=== PATIENT | female | born 1945 | race Caucasian/White ===

== ENCOUNTER 2017-09-13 21:10 | Observation (INO) | payer OTHER ==
[~2017-09-13 21:10] MED LIST: CART180C3 PO; CHOL1CAP2 PO; ESTR1 PO; NORC5TAB PO; OXYB5TAB PO; SOTA120T PO; SYNT25TA PO; TRAM50TA PO; WARF-21 PO; WARF-23 PO
[2017-09-13] MEDS ORDERED: SODIUM CHLORIDE 0.9% FLUSH 10 ML FLUSH IVF PRN (21:15)
[2017-09-13 21:25] VITALS: BP 136/92; PULSE 73; RESP 20; O2SAT 96
[2017-09-13 21:35] LABS: AUTOMATED NEUTROPHIL # 3.5 TH/MM3 (1.8-7.7); BASOPHIL % 0.7 % (0.0-2.0); EOSINOPHIL # 0.2 TH/MM3 (0-0.4); EOSINOPHIL % 2.4 % (0.0-4.0); HEMATOCRIT 46.5 % (35.0-46.0); LYMPH % 31.1 % (9.0-44.0); MEAN CELL VOLUME 89.1 FL (80.0-100.0); MEAN CORPUSCULAR HEMOGLOBIN 30.7 PG (27.0-34.0); MEAN CORPUSCULAR HGB CONC 34.5 % (32.0-36.0); MEAN PLATELET VOLUME 8.9 FL (7.0-11.0); MONOCYTE # 0.6 TH/MM3 (0-0.9); NEUT % 55.8 % (16.0-70.0); PLATELET COUNT 212 TH/MM3 (150-450); RED BLOOD COUNT 5.22 MIL/MM3 (4.00-5.30); RED CELL DISTRIBUTION WIDTH 13.9 % (11.6-17.2); WHITE BLOOD COUNT 6.3 TH/MM3 (4.0-11.0)
--- NOTE | 2017-09-13 21:38 | PD ---
HPI Chief Complaint: Chest Pain Time Seen by Provider: 21:15 Travel History International Travel<30 days: No Contact w/Intl Traveler<30days: No Traveled to known affect area: No History of Present Illness HPI Patient is a 72-year-old female who presents emergency department for evaluation of chest pain. Patient was actually escorting her elderly friend here for evaluation when she began having chest tightness in the center of her chest, she states it feels like someone squeezing her, she has never had pain like this before. She denies any shortness of breath palpitations nausea vomiting. She does have a history of atrial fibrillation and is on Coumadin followed by Dr. Robbins. Her friend who is also a patient of mine was sitting next to her when the patient began clutching her chest saying "I think I am having a heart attack". Patient states she was feeling just fine when she got here, states symptoms only lasted for a few minutes but at my suggestion she decided to sign in and be seen. Symptoms moderate, center of the chest, associated signs and symptoms and context as above. PFSH Past Medical History Arthritis: No Asthma: No Atrial Fibrillation: Yes Autoimmune Disease: No Blood Disorders: No Anxiety: Yes Depression: No Heart Rhythm Problems: Yes Cancer: Yes (LYMPHOMA) Cardiovascular Problems: No High Cholesterol: Yes Chemotherapy: Yes Chest Pain: Yes Congestive Heart Failure: No COPD: No Cerebrovascular Accident: Yes (TIA) Diabetes: No Diminished Hearing: No GERD: No Glaucoma: No Headaches: No Hepatitis: No Hiatal Hernia: No Hypertension: No Kidney Stones: No Musculoskeletal: Yes (SPINAL STENOSIS) Neurologic: No Psychiatric: No Reproductive: No Respiratory: No Myocardial Infarction: No Radiation Therapy: No Renal Failure: No Seizures: No Sickle Cell Disease: No Sleep Apnea: No Thyroid Disease: No Ulcer: No Past Surgical History Abdominal Surgery: Yes (COLON RESECTION WITH REVERSED ILEOSTOMY) AICD: No Genitourinary Surgery: Yes Gynecologic Surgery: Yes Hysterectomy: Yes Pacemaker: No Other Surgery: Yes (PARTIAL LIVER REMOVED) Social History Alcohol Use: No Tobacco Use: No Substance Use: No Allergies-Medications (Allergen,Severity, Reaction): Coded Allergies: codeine (Verified Allergy, Severe, Nausea/Vomiting, 09/13/17) meperidine (Verified Allergy, Severe, Nausea/Vomiting, 09/13/17) morphine (Verified Allergy, Severe, Nausea/Vomiting, 09/13/17) diphenhydramine (Verified Allergy, Mild, 09/13/17) Reported Meds & Prescriptions Reported Meds & Active Scripts Active Reported Tramadol (Tramadol HCl) 50 Mg Tab 50 Mg PO PRN PRN Cartia Xt (Diltiazem HCl) 180 Mg Cap.er.24h 1 Cap PO DAILY Warfarin 7.5 Mg Tab 1 Tab PO DAILY PRN Warfarin 5 Mg Tab 1 Tab PO DAILY PRN Tramadol (Tramadol HCl) 50 Mg Tab 1 Tab PO PRN PRN Synthroid (Levothyroxine Sodium) 25 Mcg Tab 1 Tab PO HS Sotalol (Sotalol HCl) 120 Mg Tab 1 Tab PO DAILY Oxybutynin ER 24 HR (Oxybutynin Chloride) 5 Mg Tab 1 Tab PO DAILY Hazen (Hydrocodone-Acetaminophen) 5-325 mg Tab 1 Tab PO Q6H PRN Estrace (Estradiol) 1 Mg Tab 1 Tab PO DAILY Fenofibric Acid Dr (Choline Fenofibrate DR) 135 mg Capdr 1 Cap PO DAILY Review of Systems Except as stated in HPI: all other systems reviewed are Neg Physical Exam Narrative GENERAL: Well-developed well-nourished clutching chest., morbidly obese. SKIN: Focused skin assessment warm/dry. HEAD: Atraumatic. Normocephalic. EYES: Pupils equal and round. No scleral icterus. No injection or drainage. ENT: No nasal bleeding or discharge. Mucous membranes pink and moist. NECK: Trachea midline. No JVD. CARDIOVASCULAR: Regular rate and rhythm. No murmur appreciated. 2+ bilateral equal pulses in all 4 extremities per RESPIRATORY: No accessory muscle use. Clear to auscultation. Breath sounds equal bilaterally. GASTROINTESTINAL: Abdomen soft, non-tender, nondistended. Hepatic and splenic margins not palpable. MUSCULOSKELETAL: No obvious deformities. No clubbing. No cyanosis. No edema. NEUROLOGICAL: Awake and alert. No obvious cranial nerve deficits. Motor grossly within normal limits. Normal speech. PSYCHIATRIC: Appropriate mood and affect; insight and judgment normal. Data Data Last Documented VS Vital Signs Date Time Temp Pulse Resp B/P (MAP) Pulse Ox O2 Delivery O2 Flow Rate FiO2 09/13/17 22:41 71 18 144/71 (95) 99 Nasal Cannula 3.00 Orders Orders Electrocardiogram (09/13/17 21:15) Ckmb (Isoenzyme) Profile (09/13/17 21:15) Complete Blood Count With Diff (09/13/17 21:15) Comprehensive Metabolic Panel (09/13/17 21:15) Magnesium (Mg) (09/13/17 21:15) Prothrombin Time / Inr (Pt) (09/13/17 21:15) Act Partial Throm Time (Ptt) (09/13/17 21:15) Troponin I (09/13/17 21:15) Chest, Single Ap (09/13/17 21:15) Ecg Monitoring (09/13/17 21:15) Iv Access Insert/Monitor (09/13/17 21:15) Oximetry (09/13/17 21:15) Oxygen Administration (09/13/17 21:15) Sodium Chloride 0.9% Flush (Ns Flush) (09/13/17 21:15) Aspirin Chew (Aspirin Chew) (09/13/17 22:00) Troponin I (09/13/17 23:59) Labs Laboratory Tests Test 09/13/17 21:19 09/13/17 23:35 White Blood Count 6.3 TH/MM3 Red Blood Count 5.22 MIL/MM3 Hemoglobin 16.0 GM/DL Hematocrit 46.5 % Mean Corpuscular Volume 89.1 FL Mean Corpuscular Hemoglobin 30.7 PG Mean Corpuscular Hemoglobin Concent 34.5 % Red Cell Distribution Width 13.9 % Platelet Count 212 TH/MM3 Mean Platelet Volume 8.9 FL Neutrophils (%) (Auto) 55.8 % Lymphocytes (%) (Auto) 31.1 % Monocytes (%) (Auto) 10.0 % Eosinophils (%) (Auto) 2.4 % Basophils (%) (Auto) 0.7 % Neutrophils # (Auto) 3.5 TH/MM3 Lymphocytes # (Auto) 2.0 TH/MM3 Monocytes # (Auto) 0.6 TH/MM3 Eosinophils # (Auto) 0.2 TH/MM3 Basophils # (Auto) 0.0 TH/MM3 CBC Comment DIFF FINAL Differential Comment Prothrombin Time 23.6 SEC Prothromb Time International Ratio 2.3 RATIO Activated Partial Thromboplast Time 39.2 SEC Blood Urea Nitrogen 19 MG/DL Creatinine 0.85 MG/DL Random Glucose 79 MG/DL Total Protein 7.6 GM/DL Albumin 3.7 GM/DL Calcium Level 9.6 MG/DL Magnesium Level 2.2 MG/DL Alkaline Phosphatase 70 U/L Aspartate Amino Transf (AST/SGOT) 21 U/L Alanine Aminotransferase (ALT/SGPT) 20 U/L Total Bilirubin 0.5 MG/DL Sodium Level 140 MEQ/L Potassium Level 3.7 MEQ/L Chloride Level 106 MEQ/L Carbon Dioxide Level 27.3 MEQ/L Anion Gap 7 MEQ/L Estimat Glomerular Filtration Rate 66 ML/MIN Total Creatine Kinase 69 U/L Troponin I LESS THAN 0.02 NG/ML MDM Medical Decision Making Medical Screen Exam Complete: Yes Emergency Medical Condition: Yes Differential Diagnosis ACS, GA, esophageal spasm, reflux, GERD, pneumonia, chest wall pain. Narrative Course Patient room to the emergency department, initial EKG shows atrial fibrillation without any ischemic changes, troponin negative. Initial troponin was drawn less than 30 minutes after the onset of her pain and I recommended that she have a repeat troponin admission to the hospital for consideration of stress testing. Patient really wants to take care of her friend and get her home as she is being discharged. I discussed with the patient that she is at risk of major adverse cardiac event in the next 30 days and suggested that she needs to be admitted to the hospital for chest pain testing. She is quite opposed to this even after she verbalized understanding to the risks of signing out AMA that I discussed with her including and permanent disability. She verbalized understanding to these risks and was willing to accept them. On further discussion she did agree to have a repeat troponin and she is due to have one drawn at midnight. On my reassessment at 11:00 the patient is now pain -free after an aspirin alone. Patient was discussed with Dr. Deluca to follow- up this repeat troponin. Diagnosis Primary Impression: Chest pain Tomi Rivers MD Sep 13, 2017 21:38
[2017-09-13 21:47] LABS: CHLORIDE 106 MEQ/L (98-107); SODIUM (NA) 140 MEQ/L (136-145)
[2017-09-13 21:51] LABS: ALBUMIN 3.7 GM/DL (3.4-5.0); BICARBONATE 27.3 MEQ/L (21.0-32.0); BLOOD UREA NITROGEN 19 MG/DL (7-18); CALCIUM 9.6 MG/DL (8.5-10.1); GLUCOSE,RANDOM 79 MG/DL (74-106); MAGNESIUM 2.2 MG/DL (1.5-2.5)
[2017-09-13 21:53] LABS: INTERNATIONAL NORMALIZED RATIO 2.3 RATIO; PROTHROMBIN TIME - PATIENT 23.6 SEC (9.8-11.6)
[2017-09-13 21:54] LABS: ALT (GPT) 20 U/L (10-53); AST (GOT) 21 U/L (15-37); CREATININE 0.85 MG/DL (0.50-1.00); GLOMERULAR FILTRATION RATE 66 ML/MIN (>89)
[2017-09-13 21:56] LABS: TOTAL BILIRUBIN ADULT 0.5 MG/DL (0.2-1.0); TOTAL PROTEIN 7.6 GM/DL (6.4-8.2)
[2017-09-13 21:57] LABS: ALKALINE PHOSPHATASE 70 U/L (45-117)
[2017-09-13 21:59] LABS: TROPONIN I LESS THAN 0.02 NG/ML (0.02-0.05)
[2017-09-13] MEDS ORDERED: ASPIRIN 81 MG CHEW TAB CHEW ONE (22:00)
--- NOTE | 2017-09-13 22:05 | RADRPT ---
EXAM DATE/TIME: 09/13/2017 21:25 [facility] COMPARISON: No previous studies available for comparison. INDICATIONS : Chest pain. MEDICAL HISTORY : Hodgkins lymphoma. Afib SURGICAL HISTORY : Splenectomy. Hysterectomy. Hysterectomy. Colon resection. ENCOUNTER: Initial ACUITY: 1 day PAIN SCORE: 3/10 LOCATION: Bilateral chest FINDINGS: A single view of the chest demonstrates the lungs to be symmetrically aerated without evidence of mas s, infiltrate or effusion. The cardiomediastinal contours are unremarkable. Osseous structures are intact. CONCLUSION: No acute disease. Francisco Torres MD on September 13, 2017 at 22:03 Board Certified Radiologist. This report was verified electronically.
[2017-09-13 22:41] VITALS: BP 144/71; PULSE 71; RESP 18; O2SAT 99
--- NOTE | 2017-09-14 00:54 | PD ---
Physical Exam Date Seen by Provider: Sep 14, 2017 Time Seen by Provider: 00:[address] Rivers in transfer of care Data Data Last Documented VS Vital Signs Date Time Temp Pulse Resp B/P (MAP) Pulse Ox O2 Delivery O2 Flow Rate FiO2 09/13/17 22:41 71 18 144/71 (95) 99 Nasal Cannula 3.00 Orders Orders Electrocardiogram (09/13/17 21:15) Ckmb (Isoenzyme) Profile (09/13/17 21:15) Complete Blood Count With Diff (09/13/17 21:15) Comprehensive Metabolic Panel (09/13/17 21:15) Magnesium (Mg) (09/13/17 21:15) Prothrombin Time / Inr (Pt) (09/13/17 21:15) Act Partial Throm Time (Ptt) (09/13/17 21:15) Troponin I (09/13/17 21:15) Chest, Single Ap (09/13/17 21:15) Ecg Monitoring (09/13/17 21:15) Iv Access Insert/Monitor (09/13/17 21:15) Oximetry (09/13/17 21:15) Oxygen Administration (09/13/17 21:15) Sodium Chloride 0.9% Flush (Ns Flush) (09/13/17 21:15) Aspirin Chew (Aspirin Chew) (09/13/17 22:00) Troponin I (09/13/17 23:59) Admit Order (Ed Use Only) (09/14/17 ) Youth Support Worker / Telemetry [id number] (09/14/17 00:33) Diet Heart Healthy (09/14/17 Breakfast) Activity Oob With Assistance (09/14/17 00:33) Notify Dr: Other (09/14/17 00:33) Labs Laboratory Tests Test 09/13/17 21:19 09/13/17 23:35 White Blood Count 6.3 TH/MM3 Red Blood Count 5.22 MIL/MM3 Hemoglobin 16.0 GM/DL Hematocrit 46.5 % Mean Corpuscular Volume 89.1 FL Mean Corpuscular Hemoglobin 30.7 PG Mean Corpuscular Hemoglobin Concent 34.5 % Red Cell Distribution Width 13.9 % Platelet Count 212 TH/MM3 Mean Platelet Volume 8.9 FL Neutrophils (%) (Auto) 55.8 % Lymphocytes (%) (Auto) 31.1 % Monocytes (%) (Auto) 10.0 % Eosinophils (%) (Auto) 2.4 % Basophils (%) (Auto) 0.7 % Neutrophils # (Auto) 3.5 TH/MM3 Lymphocytes # (Auto) 2.0 TH/MM3 Monocytes # (Auto) 0.6 TH/MM3 Eosinophils # (Auto) 0.2 TH/MM3 Basophils # (Auto) 0.0 TH/MM3 CBC Comment DIFF FINAL Differential Comment Prothrombin Time 23.6 SEC Prothromb Time International Ratio 2.3 RATIO Activated Partial Thromboplast Time 39.2 SEC Blood Urea Nitrogen 19 MG/DL Creatinine 0.85 MG/DL Random Glucose 79 MG/DL Total Protein 7.6 GM/DL Albumin 3.7 GM/DL Calcium Level 9.6 MG/DL Magnesium Level 2.2 MG/DL Alkaline Phosphatase 70 U/L Aspartate Amino Transf (AST/SGOT) 21 U/L Alanine Aminotransferase (ALT/SGPT) 20 U/L Total Bilirubin 0.5 MG/DL Sodium Level 140 MEQ/L Potassium Level 3.7 MEQ/L Chloride Level 106 MEQ/L Carbon Dioxide Level 27.3 MEQ/L Anion Gap 7 MEQ/L Estimat Glomerular Filtration Rate 66 ML/MIN Total Creatine Kinase 69 U/L Troponin I LESS THAN 0.02 NG/ML LESS THAN 0.02 NG/ML [facility] Medical Record Reviewed: Yes Supervised Visit with CARLA: No Differential Diagnosis accepted in transfer of care from Dr Rivers please refer to his dictation Narrative Course Accepted in transfer of care from Dr. Rivers for follow-up of second troponin I per Dr. Rivers patient presents with history of atrial fibrillation and complained of chest pain reporting that she thought she was having a heart attack patient was not having pain at the time that he saw her and gave her aspirin. Patient is therapeutic on her INR which she takes for atrial fibrillation. Patient has no chest pain at this time. Second troponin I is pending Second troponin I has been resulted and identifies to be less than 0.02 EKG is atrial fibrillation with controlled ventricular rate of [address] elevation injury pattern subsequently patient has agreed to stay for chest pain center protocol Call placed [facility] for obs BUSINESS CONTINUITY ANALYST protocol Physician Communication Physician Communication discussed with Dr Rivers Diagnosis Primary Impression: Chest pain Admitting Information Admitting Physician Requests: Observation Ghazala Deluca MD Sep 14, 2017 00:54
[2017-09-14] MEDS ORDERED: NITROGLYCERIN 0.4 MG SL 25 TABS/BTL SL PRN (01:00)
[2017-09-14] MEDS ORDERED: ASPIRIN 81 MG CHEW TAB PO ONE (01:00)
[2017-09-14] MEDS ORDERED: SODIUM CHLORIDE 0.9% FLUSH 10 ML FLUSH IV FLUSH PRN (01:00)
[2017-09-14 01:07] VITALS: BP 132/76
[2017-09-14 01:10] VITALS: PULSE 71
[2017-09-14 01:30] VITALS: BP 149/87; PULSE 67; RESP 20; TEMP 97; O2SAT 94; O2SAT 97
[2017-09-14 03:18] LABS: TROPONIN I LESS THAN 0.02 NG/ML (0.02-0.05)
[2017-09-14 04:00] VITALS: BP 106/52; PULSE 81; RESP 20; TEMP 96.5; O2SAT 97
[2017-09-14 08:00] VITALS: BP 127/75; PULSE 56; RESP 16; TEMP 97.2; O2SAT 97
--- NOTE | 2017-09-14 08:26 | HHI.HP ---
[facility] Jass Casarez M.D. Admission Diagnosis Chest pain Diagnoses: (1) Chest pain Chief Complaint: Chest pain Travel History International Travel<30 Days: No Contact w/Intl Traveler <30 Da: No Traveled to Known Affected Are: No History of Present Illness Written by Lea Bravo, acting as scribe for Dr. Zepeda on 09/14/17 at 08:14. This is a 72-year-old female patient with a known medical history of atrial fibrillation on Coumadin, hyperlipidemia, history of lymphoma, history of TIA who presented to the ED with complaints of chest pain. Patient supposedly was bringing in a friend to the hospital and while in the ER with her she developed a chest pain in her midsternal chest. Patient states that the pain occurred suddenly, was characterized as sharp in nature, denies any radiation of pain to the arms, legs or jaw, denies any associated nausea, vomiting, lightheadedness, shortness of breath. Patient states she has not had an episode of this pain before roughly 6 months ago. She does follow with Dr. Robbins in his office for management of atrial fibrillation. States his last stress test was many years ago and reportedly negative. She denies any recent illness including fever, chills, cough, abdominal pain, nausea, vomiting, diarrhea or dysuria. Denies any history of GERD. At the time of assessment patient's chest pain is resolved. Troponins are flat. EKG showing controlled rate atrial fibrillation. Review of Systems Constitutional: DENIES: Fever, Chills Eyes: DENIES: Blurred vision, Diplopia Respiratory: DENIES: Cough, Sputum production, Shortness of breath Cardiovascular: COMPLAINS OF: Chest pain, Palpitations, DENIES: Lower Extremity Edema Gastrointestinal: DENIES: Abdominal pain, Black stools, Bloody stools, Constipation, Diarrhea, Nausea, Vomiting Musculoskeletal: DENIES: Joint pain Psychiatric: COMPLAINS OF: Anxiety Except as stated in HPI: all other systems reviewed are Neg Past Family Social History Past Medical History Atrial fibrillation on Coumadin Anxiety and depression History of lymphoma with chemotherapy Hyperlipidemia History of TIA Spinal stenosis Past Surgical History History of colon resection with reversed ileostomy Hysterectomy Partial part of liver removed. Reported Medications Active Reported Cartia Xt (Diltiazem HCl) 180 Mg Cap.er.24h 1 Cap PO DAILY Warfarin 7.5 Mg Tab 1 Tab PO DAILY PRN Warfarin 5 Mg Tab 1 Tab PO DAILY PRN Tramadol (Tramadol HCl) 50 Mg Tab 1 Tab PO PRN PRN Synthroid (Levothyroxine Sodium) 25 Mcg Tab 1 Tab PO HS Sotalol (Sotalol HCl) 120 Mg Tab 1 Tab PO DAILY Oxybutynin ER 24 HR (Oxybutynin Chloride) 5 Mg Tab 1 Tab PO DAILY Estrace (Estradiol) 1 Mg Tab 1 Tab PO DAILY Fenofibric Acid Dr (Choline Fenofibrate DR) 135 mg Capdr 1 Cap PO DAILY Allergies: Coded Allergies: codeine (Verified Allergy, Severe, Nausea/Vomiting, 09/13/17) meperidine (Verified Allergy, Severe, Nausea/Vomiting, 09/13/17) morphine (Verified Allergy, Severe, Nausea/Vomiting, 09/13/17) diphenhydramine (Verified Allergy, Mild, 09/13/17) Active Ordered Medications Current Medications Medications (Trade) Dose Ordered Sig/Mak Route Start Time Stop Time Status Last Admin (NS Flush) 2 ml UNSCH PRN IVF 09/13/17 21:15 (NS Flush) 2 ml UNSCH PRN IV FLUSH 09/14/17 01:00 (NS Flush) 2 ml BID IV FLUSH 09/14/17 09:00 09/14/17 08:06 (Nitrostat Sl) 0.4 mg Q5M PRN SL 09/14/17 01:00 Family History Maternal medical history significant for hypertension. Social History Denies any current tobacco use, states she quit smoking years ago. Denies any alcohol or illicit drug use. Physical Exam Vital Signs Vital Signs Date Time Temp Pulse Resp B/P (MAP) Pulse Ox O2 Delivery O2 Flow Rate FiO2 09/14/17 04:00 96.5 81 20 106/52 (70) 97 09/14/17 01:30 97 21 09/14/17 01:30 97.0 67 20 149/87 (107) 94 09/14/17 01:10 71 09/14/17 01:07 69 18 132/76 (94) 99 Nasal Cannula 2.00 09/13/17 22:41 71 18 144/71 (95) 99 Nasal Cannula 3.00 09/13/17 21:27 Nasal Cannula 2.00 09/13/17 21:27 Nasal Cannula 09/13/17 21:25 73 20 136/92 (107) 96 Physical Exam GENERAL: Well-developed, obese female patient in NAD. SKIN: Warm and dry. No rash. HEAD: Normocephalic. Atraumatic. EYES: Pupils equal and round. No scleral icterus. No injection or drainage. ENT: No nasal bleeding or discharge. Mucous membranes pink and moist. NECK: Supple. Trachea midline. CARDIOVASCULAR: Irregularly irregular rhythm. No murmur appreciated. RESPIRATORY: No accessory muscle use. Clear to auscultation. Breath sounds equal bilaterally. GASTROINTESTINAL: Abdomen soft, non-tender, nondistended. Normoactive bowel sounds x4. Mid abdominal scar from prior surgery. MUSCULOSKELETAL: No obvious deformities. Extremities without clubbing, cyanosis , or edema. NEUROLOGICAL: Awake and alert. No obvious cranial nerve deficits. Motor grossly within normal limits. 5/5 muscle strength in bilateral upper and lower extremities. Normal speech. PSYCHIATRIC: Appropriate mood and affect; insight and judgment normal. Laboratory Laboratory Tests Test 09/13/17 21:19 09/13/17 23:35 09/14/17 02:35 White Blood Count 6.3 Red Blood Count 5.22 Hemoglobin 16.0 Hematocrit 46.5 Mean Corpuscular Volume 89.1 Mean Corpuscular Hemoglobin 30.7 Mean Corpuscular Hemoglobin Concent 34.5 Red Cell Distribution Width 13.9 Platelet Count 212 Mean Platelet Volume 8.9 Neutrophils (%) (Auto) 55.8 Lymphocytes (%) (Auto) 31.1 Monocytes (%) (Auto) 10.0 Eosinophils (%) (Auto) 2.4 Basophils (%) (Auto) 0.7 Neutrophils # (Auto) 3.5 Lymphocytes # (Auto) 2.0 Monocytes # (Auto) 0.6 Eosinophils # (Auto) 0.2 Basophils # (Auto) 0.0 CBC Comment DIFF FINAL Differential Comment Prothrombin Time 23.6 Prothromb Time International Ratio 2.3 Activated Partial Thromboplast Time 39.2 Blood Urea Nitrogen 19 Creatinine 0.85 Random Glucose 79 Total Protein 7.6 Albumin 3.7 Calcium Level 9.6 Magnesium Level 2.2 Alkaline Phosphatase 70 Aspartate Amino Transf (AST/SGOT) 21 Alanine Aminotransferase (ALT/SGPT) 20 Total Bilirubin 0.5 Sodium Level 140 Potassium Level 3.7 Chloride Level 106 Carbon Dioxide Level 27.3 Anion Gap 7 Estimat Glomerular Filtration Rate 66 Total Creatine Kinase 69 118 Troponin I LESS THAN 0.02 LESS THAN 0.02 LESS THAN 0.02 Creatine Kinase MB 1.4 Result Diagram: 09/13/17211809/13/172118 Imaging Last Impressions Chest X-Ray 09/13/172114 Signed Impressions: Service Date/Time: Wednesday, September 13, 2017 21:25 - CONCLUSION: No acute disease. Francisco Torres MD Septic Shock Reassessment Septic shock perfusion: reassessment completed Caprini VTE Risk Assessment Caprini VTE Risk Assessment: Mod/High Risk (score >= 2) Caprini Risk Assessment Model Point Value = 1 Point Value = 2 Point Value = 3 Point Value = 5 Age 41-60 Minor surgery BMI > 25 kg/m2 Swollen legs Varicose veins or History of unexplained or recurrent spontaneous Oral contraceptives or hormone replacement Sepsis (< 1 month) Serious lung disease, including pneumonia (< 1 month) Abnormal pulmonary function Acute myocardial infarction Congestive heart failure (< 1 month) History of inflammatory bowel disease Medical patient at bed rest Age 61-74 Arthroscopic surgery Major open surgery (> 45 min) Laparoscopic surgery (> 45 min) Malignancy Confined to bed (> 72 hours) Immobilizing plaster cast Central venous access Age >= 75 History of VTE Family history of VTE Factor V Leiden Prothrombin [id number] Lupus anticoagulant Anticardiolipin antibodies Elevated serum homocysteine Heparin-induced thrombocytopenia Other congenital or acquired thrombophilia Stroke (< 1 month) Elective arthroplasty Hip, pelvis, or leg fracture Acute spinal cord injury (< 1 month) Prophylaxis Regimen Total Risk Factor Score Risk Level Prophylaxis Regimen 0-1 Low Early ambulation 2 Moderate Order ONE of the following: *Sequential Compression Device (SCD) *Heparin 5000 units SQ BID 3-4 Higher Order ONE of the following medications: *Heparin 5000 units SQ TID *Enoxaparin/Lovenox 40 mg SQ daily (WT < 150 kg, CrCl > 30 mL/min) *Enoxaparin/Lovenox 30 mg SQ daily (WT < 150 kg, CrCl > 10-29 mL/min) *Enoxaparin/Lovenox 30 mg SQ BID (WT < 150 kg, CrCl > 30 mL/min) AND/OR *Sequential Compression Device (SCD) 5 or more Highest Order ONE of the following medications: *Heparin 5000 units SQ TID (Preferred with Epidurals) *Enoxaparin/Lovenox 40 mg SQ daily (WT < 150 kg, CrCl > 30 mL/min) *Enoxaparin/Lovenox 30 mg SQ daily (WT < 150 kg, CrCl > 10-29 mL/min) *Enoxaparin/Lovenox 30 mg SQ BID (WT < 150 kg, CrCl > 30 mL/min) AND *Sequential Compression Device (SCD) Assessment and Plan Problem List: (1) Chest pain ICD Code: R07.9 - Chest pain, unspecified Status: Acute Assessment and Plan This is a 72-year-old female patient with a known medical history of atrial fibrillation on Coumadin, hyperlipidemia, history of lymphoma, history of TIA who presented to the ED with complaints of chest pain. Patient supposedly was bringing in a friend to the hospital and while in the ER with her she developed a chest pain in her midsternal chest. Chest pain rule out ACS - Patient has been admitted to the chest pain center for observation. Serial EKGs and serial troponins have been ordered for ruling out ACS purposes. Troponins flat. - EKG reviewed showing controlled rate with atrial fibrillation. No ST changes to indicate ischemia. - Chest x-ray reviewed showing no acute cardiopulmonary disease. Vital signs are stable overnight. - Patient received aspirin in the ED. Nitroglycerin sublingual as needed for chest pain. - CBC and BMP reviewed, essentially unremarkable. Supplemental O2 as needed, keep saturations above 92%. - Patient's chest pain is now resolved, patient will undergo a cardiac nuclear stress test to further rule out any possible ischemia. - Further hospitalization treatment plan will depend on nuclear imaging results. Patient is stable at this time and agreeable to the plan. Atrial fibrillation, chronic: INR 2.3. Continue Coumadin and home Cardizem/ Sotalol. Continue cardiac telemetry. Hypothyroidism, chronic: Continue home levothyroxine dose. Hypertriglyceridemia: Continue home medication. DVT prophylaxis: SCDs. Coumadin. Patient underwent cardiac nuclear stress test report reviewed showing EF greater than 70%. No signs of ischemia. Intact wall motion and thickening without hypokinetic or dyskinetic segments. No significant reversibility to suggest ischemia. Patient chest pain is resolved. Will be discharged home recommends to follow-up with PCP. Patient sees Dr. Robbins, encouraged to follow-up with him within the month. Patient encouraged to return to ED if chest pain persists or worsens. Patient is stable at this time and agreeable to the plan. Lea Bravo Sep 14, 2017 08:26
[2017-09-14] MEDS ORDERED: SODIUM CHLORIDE 0.9% FLUSH 10 ML FLUSH IV FLUSH SCH (09:00)
[2017-09-14 10:05] LABS: TROPONIN I LESS THAN 0.02 NG/ML (0.02-0.05)
[2017-09-14] MEDS ORDERED: REGADENOSON INJ 0.4 MG/5 ML SYR IV ONE (11:55)
--- NOTE | 2017-09-14 14:18 | RADRPT ---
EXAM DATE/TIME: 09/14/2017 11:32 [place] COMPARISON: No previous studies available for comparison. INDICATIONS : Chest pain. DOSE: 35 mCi Tc99m Myoview at stress. 11 mCi Tc99m Myoview at rest. 0.4 mg Lexiscan STRESS SYMPTOMS: Shortness of breath. EJECTION FRACTION: > 70% MEDICAL HISTORY : Hypercholesterolemia. Lymphoma. SURGICAL HISTORY : Hysterectomy. Colon resection. Partial liver removed. ENCOUNTER: Initial ACUITY: 1 day PAIN SCALE: 3/10 LOCATION: chest TECHNIQUE: The patient underwent pharmacologic stress with infusion of prescribed dose. Continuous ECG tracing was monitored during stress. Gated SPECT imaging was performed after stress and conventional SPECT i maging was performed at rest. The examination was performed on a SPECT/CT scanner, both attenuation and non-corrected datasets were reviewed. FINDINGS: DISTRIBUTION: The maximum perfused segment at stress is in the anterolateral wall. PERFUSION STUDY: The pattern of perfusion at stress is within normal limits. GATED STUDY: There is intact wall motion and thickening without hypokinetic or dyskinetic segments. CONCLUSION: 1. No significant reversibility to suggest ischemia. 2. Normal wall motion with ejection fraction of greater than 70%. RISK CATEGORY: Low (<1% Annual Mortality Rate) Darwin Fuchs MD on September 14, 2017 at 14:14 Board Certified Radiologist. This report was verified electronically.
--- NOTE | 2017-09-14 16:13 | HHI.DCPOC ---
Discharge Care Plan Diagnosis: (1) Chest pain Goals to Promote Your Health * To prevent worsening of your condition and complications * To maintain your health at the optimal level Directions to Meet Your Goals Take your medications as prescribed Follow your dietary instruction Follow activity as directed Keep your appointments as scheduled Take your immunizations and boosters as scheduled If your symptoms worsen call your PCP, if no PCP go to Urgent Care Center or Emergency Room Smoking is Dangerous to Your Health. Avoid second hand smoke Call the 24-hour hour crisis hotline for domestic abuse at [facility] B[facility] Sep 14, 2017 16:13
--- NOTE | 2017-09-14 16:38 | TR ---
Date Performed: 09/14/2017 Time Performed: 12:09:32 DOCTOR: Bert Rodriges DRUG LIST: CLINICAL HISTORY: CHEST PAIN REASON FOR TEST: REASON FOR ENDING: OBSERVATION: CONCLUSION: Lexiscan stress test was performed under standard four minute protocol. [place]ion[place] e was injected one minute prior to ending the test. No electrocardiographic abormalities were present to suggest ischemia. Nuclear imaging and interpretation are pending. COMMENTS:
--- NOTE | 2017-09-15 09:38 | EKG ---
Date Performed: 09/14/2017 Time Performed: 00:26:00 PTAGE: 72 years EKG: ATRIAL FIBRILLATION WITH SLOW VENTRICULAR RESPONSE ABNORMAL RHYTHM ECG PREVIOUS TRACING : 09/13/2017 21.15 Since the previous tracing, no significant change noted DOCTOR: Bert Rodriges Interpretating Date/Time 09/15/2017 09:37:44
--- NOTE | 2017-09-15 09:38 | EKG ---
Date Performed: 09/13/2017 Time Performed: 21:15:03 PTAGE: 72 years EKG: ATRIAL FIBRILLATION ABNORMAL RHYTHM ECG PREVIOUS TRACING : 01/20/2016 11.03 Since previous tracing, no significant change. DOCTOR: Bert Rodriges Interpretating Date/Time 09/15/2017 09:37:31
--- NOTE | 2017-09-15 09:40 | EKG ---
Date Performed: 09/14/2017 Time Performed: 02:32:50 PTAGE: 72 years EKG: Atrial fibrillation with aberrant conduction or ventricular premature complexes PREVIOUS TRACING : 09/14/2017 00.26 Since previous tracing, the ventricular ectopic beat is new, otherwise no significant change. DOCTOR: Bert Rodriges Interpretating Date/Time 09/15/2017 09:39:00
--- NOTE | 2017-09-15 09:40 | EKG ---
Date Performed: 09/14/2017 Time Performed: 05:29:22 PTAGE: 72 years EKG: Atrial fibrillation Low QRS voltage in extremity leads Nonspecific T-wave abnormality PREVIOUS TRACING : 09/14/2017 10.57 Since previous tracing, the T-wave changes anterolate rally are slightly more prominent, otherwise no significant change. DOCTOR: Bert Rodriges Interpretating Date/Time 09/15/2017 09:40:05
== END 2017-09-14 16:50 | disposition home or self-care (01) ==
LOC: PHED 21:10 → PHEDA 09-14 00:35 → PH3B 09-14 01:14
PROVIDERS: ADMIT Hospitalist; ATTEND Hospitalist
DX: R07.89 Other chest pain (principal); I48.2 Chronic atrial fibrillation; E78.5 Hyperlipidemia, unspecified; E03.9 Hypothyroidism, unspecified; E78.00 Pure hypercholesterolemia, unspecified; E78.1 Pure hyperglyceridemia; F32.9 Major depressive disorder, single episode, unspecified; F41.9 Anxiety disorder, unspecified; M48.00 Spinal stenosis, site unspecified; Z86.73 Personal history of transient ischemic attack (TIA), and cerebral infarction without residual deficits; Z79.01 Long term (current) use of anticoagulants; Z85.72 Personal history of non-Hodgkin lymphomas
CPT/HCPCS: 71045; 78452; 80053; 82550; 82552; 83735; 84484; 85025; 85610; 85730; 93005; 93017; 99285; A9502; G0378; J2785